=== PATIENT | female | born 1975 | race Asian ===

== ENCOUNTER 2021-07-20 13:14 | Inpatient (IN) | payer OTHER ==
[2021-07-20] MEDS ORDERED: MAGNESIUM CITRATE 300 ML BOTTLE PO PRN (13:31)
[2021-07-20] MEDS ORDERED: MAG HYDROX/AL HYDROX/SIMETH 30 ML UNIT-DOSE CUP PO PRN (13:31)
[2021-07-20] MEDS ORDERED: IBUPROFEN 400 MG TABLET (FP) PO PRN (13:31)
[2021-07-20] MEDS ORDERED: BISMUTH SUBSALICYLATE 524 MG/30 ML PO PRN (13:31)
[2021-07-20] MEDS ORDERED: ONDANSETRON *ODT* 4 MG TABLET SL PRN (13:31)
[2021-07-20] MEDS ORDERED: MAGNESIUM HYDROX 2400MG/30ML ORAL SUSPENSION 30 ML CUP PO PRN (13:31)
[2021-07-20] MEDS ORDERED: ACETAMINOPHEN 325 MG TABLET (FP) PO PRN ×2 (13:31)
[2021-07-20 13:46] VITALS: BMI 32.3
[2021-07-20] MEDS ORDERED: hydrOXYzine PAMOATE 25 MG CAPSULE (FP) PO SCH (14:00)
[2021-07-20] MEDS ORDERED: hydrOXYzine PAMOATE 25 MG CAPSULE (FP) PO PRN (14:44)
[2021-07-20] MEDS: PRENATAL VITAMINS W/ FOLIC ACID TABLET (FP) PO SCH (15:12)
[2021-07-20] MEDS: NICOTINE 10 MG CARTRIDGE (INHALER) IH PRN ×2 (15:12→21:16)
[2021-07-20] MEDS: NICOTINE 14 MG/24 HOURS TOPICAL PATCH TD SCH (15:12)
[2021-07-20] MEDS: diazePAM 5 MG TABLET PO PRN (15:12)
[2021-07-20] MEDS: INSULIN SLIDING SCALE (NOVOLOG) 1 VIAL SQ SCH ×2 (17:28→21:53)
[2021-07-20] MEDS: diazePAM 5 MG TABLET PO SCH ×2 (17:28→22:26)
[2021-07-20 17:39] LABS: HEMOGLOBIN 12.2 GM/dL (10.7-15.3); MEAN PLT VOLUME 7.4 fl (7.5-11.1); PLATELET COUNT 363 10^3/uL (134-434); RBC 3.71 M/mm3 (3.60-5.2); RDW 13.7 % (11.6-15.6); WHITE BLOOD COUNT 13.5 K/mm3 (4.0-10.0)
[2021-07-20 17:44] LABS: CALCIUM 9.9 mg/dL (8.5-10.1)
[2021-07-20 17:45] LABS: ALBUMIN 3.4 g/dl (3.4-5.0); BLOOD UREA NITROGEN 14.2 mg/dL (7-18)
[2021-07-20 17:48] LABS: CREATININE 0.9 mg/dL (0.55-1.3)
[2021-07-20 17:50] LABS: BILIRUBIN,TOTAL 0.7 mg/dL (0.2-1); TOT PROT 7.6 g/dl (6.4-8.2)
[2021-07-20] MEDS: MENTHOL/PHENOL 1 EACH UD MM PRN (18:08)
[2021-07-20] MEDS ORDERED: AZITHROMYCIN 500 MG TABLET PO ONE (19:16)
[2021-07-20] MEDS: MELATONIN 5 MG TABLETS PO SCH (22:25)
[2021-07-20] MEDS: QUEtiapine FUMARATE 50 MG TABLET PO SCH (22:25)
[2021-07-20] MEDS: THIAMINE HCL 100 MG TABLET (FP) PO SCH (22:25)
[2021-07-20] MEDS: guaiFENesin/D-M SUGAR-FREE/ACLHOL-FREE 118 ML BOTTLE PO PRN (23:34)
[2021-07-21] MEDS: diazePAM 5 MG TABLET PO SCH ×4 (05:48→22:41)
[2021-07-21] MEDS: guaiFENesin/D-M SUGAR-FREE/ACLHOL-FREE 118 ML BOTTLE PO PRN ×3 (05:49→22:40)
[2021-07-21] MEDS: INSULIN SLIDING SCALE (NOVOLOG) 1 VIAL SQ SCH ×4 (06:28→22:42)
[2021-07-21] MEDS: NICOTINE 10 MG CARTRIDGE (INHALER) IH PRN ×2 (09:19→18:13)
[2021-07-21] MEDS: NICOTINE 14 MG/24 HOURS TOPICAL PATCH TD SCH (10:03)
[2021-07-21] MEDS: PRENATAL VITAMINS W/ FOLIC ACID TABLET (FP) PO SCH (10:04)
[2021-07-21] MEDS: AZITHROMYCIN 250 MG TABLET PO SCH (10:04)
[2021-07-21] MEDS: NICOTINE POLACRILEX 2 MG GUM BUC PRN ×2 (13:48→18:03)
[2021-07-21] MEDS: MENTHOL/PHENOL 1 EACH UD MM PRN ×2 (13:48→18:15)
[2021-07-21] MEDS: THIAMINE HCL 100 MG TABLET (FP) PO SCH (22:41)
[2021-07-21] MEDS: MELATONIN 5 MG TABLETS PO SCH (22:41)
[2021-07-21] MEDS: QUEtiapine FUMARATE 50 MG TABLET PO SCH (22:41)
[2021-07-21] MEDS: METHOCARBAMOL 500 MG TABLET PO PRN (22:42)
[2021-07-22] MEDS: diazePAM 5 MG TABLET PO SCH ×3 (05:39→22:49)
[2021-07-22] MEDS: metFORMIN HCL 500 MG TABLET (FP) PO SCH (06:14)
[2021-07-22] MEDS: INSULIN SLIDING SCALE (NOVOLOG) 1 VIAL SQ SCH ×4 (06:15→22:46)
[2021-07-22] MEDS: NICOTINE POLACRILEX 2 MG GUM BUC PRN (10:24)
[2021-07-22] MEDS: diazePAM 5 MG TABLET PO PRN (10:26)
[2021-07-22] MEDS: PRENATAL VITAMINS W/ FOLIC ACID TABLET (FP) PO SCH (10:26)
[2021-07-22] MEDS: AZITHROMYCIN 250 MG TABLET PO SCH (10:26)
[2021-07-22] MEDS: guaiFENesin/D-M SUGAR-FREE/ACLHOL-FREE 118 ML BOTTLE PO PRN ×2 (10:27→22:53)
[2021-07-22] MEDS: NICOTINE 10 MG CARTRIDGE (INHALER) IH PRN (10:58)
[2021-07-22 12:39] LABS: BASO % 0.9 % (0-2.0); HEMATOCRIT 39.6 % (32.4-45.2); HEMOGLOBIN 13.6 GM/dL (10.7-15.3); MCH 33.5 pg (25.7-33.7); MCHC 34.2 g/dl (32.0-36.0); MEAN CELL VOLUME 97.9 fl (80-96); MEAN PLT VOLUME 8.2 fl (7.5-11.1); MONO % 4.3 % (3.8-10.2); NEUT % 68.8 % (42.8-82.8); PLATELET COUNT 444 10^3/uL (134-434); RBC 4.04 M/mm3 (3.60-5.2)
[2021-07-22 12:43] LABS: ALBUMIN 3.6 g/dl (3.4-5.0); BLOOD UREA NITROGEN 13.5 mg/dL (7-18); CALCIUM 10.3 mg/dL (8.5-10.1)
[2021-07-22 12:45] LABS: BILIRUBIN,TOTAL 0.5 mg/dL (0.2-1); CREATININE 0.7 mg/dL (0.55-1.3)
[2021-07-22] MEDS: QUEtiapine FUMARATE 50 MG TABLET PO SCH (22:48)
[2021-07-22] MEDS: MELATONIN 5 MG TABLETS PO SCH (22:48)
[2021-07-22] MEDS: THIAMINE HCL 100 MG TABLET (FP) PO SCH (22:48)
[2021-07-23] MEDS: metFORMIN HCL 500 MG TABLET (FP) PO SCH (06:05)
[2021-07-23] MEDS: diazePAM 5 MG TABLET PO SCH ×2 (06:05→17:40)
[2021-07-23] MEDS: guaiFENesin/D-M SUGAR-FREE/ACLHOL-FREE 118 ML BOTTLE PO PRN ×3 (06:11→22:33)
[2021-07-23] MEDS: NICOTINE POLACRILEX 2 MG GUM BUC PRN ×3 (06:12→22:33)
[2021-07-23] MEDS: INSULIN SLIDING SCALE (NOVOLOG) 1 VIAL SQ SCH ×4 (07:05→22:45)
[2021-07-23] MEDS: NICOTINE 10 MG CARTRIDGE (INHALER) IH PRN (09:34)
[2021-07-23] MEDS: PRENATAL VITAMINS W/ FOLIC ACID TABLET (FP) PO SCH (10:34)
[2021-07-23] MEDS: AZITHROMYCIN 250 MG TABLET PO SCH (10:34)
[2021-07-23] MEDS: diazePAM 5 MG TABLET PO PRN (10:37)
[2021-07-23] MEDS: MENTHOL/PHENOL 1 EACH UD MM PRN (20:17)
[2021-07-23] MEDS: METHOCARBAMOL 500 MG TABLET PO PRN (22:29)
[2021-07-23] MEDS: MELATONIN 5 MG TABLETS PO SCH (22:29)
[2021-07-23] MEDS: THIAMINE HCL 100 MG TABLET (FP) PO SCH (22:30)
[2021-07-23] MEDS: QUEtiapine FUMARATE 50 MG TABLET PO SCH (22:31)
[2021-07-24] MEDS ORDERED: diazePAM 5 MG TABLET PO ONE (06:00)
[2021-07-24] MEDS: metFORMIN HCL 500 MG TABLET (FP) PO SCH (06:08)
[2021-07-24] MEDS: INSULIN SLIDING SCALE (NOVOLOG) 1 VIAL SQ SCH ×3 (06:10→17:31)
[2021-07-24] MEDS: PRENATAL VITAMINS W/ FOLIC ACID TABLET (FP) PO SCH (09:51)
[2021-07-24] MEDS: AZITHROMYCIN 250 MG TABLET PO SCH (09:51)
[2021-07-24] MEDS: NICOTINE 10 MG CARTRIDGE (INHALER) IH PRN (09:51)
[2021-07-24] MEDS: NICOTINE POLACRILEX 2 MG GUM BUC PRN ×2 (09:53→18:05)
[2021-07-24 13:16] VITALS: BP 154/94; PULSE 98; TEMP 96.9
[2021-07-24] MEDS ORDERED: amLODIPine BESYLATE 5 MG TABLET (FP) PO ONE (17:58)
[2021-07-25] MEDS ORDERED: LISINOPRIL 20 MG TABLET PO SCH (10:00)
[2021-07-25] MEDS ORDERED: PATIENT'S OWN MEDICATION (NON-FORMULARY) (Amlodipine Besylate/Benazepril [Lotrel 10-20 Mg PO SCH (10:00)
[2021-07-25] MEDS ORDERED: PATIENT'S OWN MEDICATION (NON-FORMULARY) (Atenolol/Chlorthalidone [Atenolol-Chlorthalidone PO SCH (10:00)
[2021-07-25] MEDS ORDERED: amLODIPine BESYLATE 10 MG TABLET (FP) PO SCH (10:00)
[2021-07-26] MEDS ORDERED: ATENOLOL 50 MG TABLET (FP) PO SCH (10:00)
[2021-07-26] MEDS ORDERED: CHLORTHALIDONE 25 MG TABLET PO SCH (10:00)
== END 2021-07-24 18:43 | disposition other institution (70) | DRG 775 ==
LOC: YASAS 13:14 → Y3N 14:26
PROVIDERS: ADMIT Allergy & Immunology; ATTEND Allergy & Immunology
PROC: HZ2ZZZZ Detoxification Services for Substance Abuse Treatment (ICD-10-PCS; principal; 2021-07-20)
DX: F10.230 Alcohol dependence with withdrawal, uncomplicated (principal); F12.20 Cannabis dependence, uncomplicated; F17.210 Nicotine dependence, cigarettes, uncomplicated; F31.9 Bipolar disorder, unspecified; I10 Essential (primary) hypertension; E78.5 Hyperlipidemia, unspecified; E11.9 Type 2 diabetes mellitus without complications; Z79.84 Long term (current) use of oral hypoglycemic drugs; E66.9 Obesity, unspecified; Z68.32 Body mass index [BMI] 32.0-32.9, adult
CPT/HCPCS: 36415; 71045-TC-FY; 80053; 82962; 85025; 85027; 86780; 87070; 93005; 93010; C9803; U0003; U0005

== ENCOUNTER 2021-07-24 18:54 | Inpatient (IN) | payer OTHER ==
[2021-07-24] MEDS ORDERED: MAGNESIUM CITRATE 300 ML BOTTLE PO PRN (20:04)
[2021-07-24] MEDS ORDERED: MAG HYDROX/AL HYDROX/SIMETH 30 ML UNIT-DOSE CUP PO PRN (20:04)
[2021-07-24] MEDS ORDERED: P-EPHED 60MG/TRIPROLIDI 2.5MG TABLET PO PRN (20:04)
[2021-07-24] MEDS ORDERED: IBUPROFEN 400 MG TABLET (FP) PO PRN (20:04)
[2021-07-24] MEDS ORDERED: LOPERAMIDE HCL 2 MG CAPSULE PO PRN (20:04)
[2021-07-24] MEDS ORDERED: ACETAMINOPHEN 325 MG TABLET (FP) PO PRN (20:04)
[2021-07-24] MEDS ORDERED: MAGNESIUM HYDROX 2400MG/30ML ORAL SUSPENSION 30 ML CUP PO PRN (20:04)
[2021-07-24] MEDS ORDERED: QUEtiapine FUMARATE 50 MG TABLET PO SCH (22:00)
[2021-07-24] MEDS ORDERED: MELATONIN 5 MG TABLETS PO SCH (22:00)
[2021-07-24] MEDS: BACLOFEN 10 MG TABLET (FP) PO SCH (22:06)
[2021-07-24] MEDS: hydrOXYzine PAMOATE 25 MG CAPSULE (FP) PO SCH (22:07)
[2021-07-24] MEDS: NICOTINE 10 MG CARTRIDGE (INHALER) IH PRN (22:07)
[2021-07-24] MEDS: THIAMINE HCL 100 MG TABLET (FP) PO SCH (22:07)
[2021-07-24] MEDS: guaiFENesin 200 MG/10 ML 10 ML UNIT-DOSE CUPS PO PRN (22:09)
[2021-07-25] MEDS: guaiFENesin 200 MG/10 ML 10 ML UNIT-DOSE CUPS PO PRN ×2 (06:35→22:06)
[2021-07-25] MEDS: metFORMIN HCL 500 MG TABLET (FP) PO SCH (06:35)
[2021-07-25] MEDS: hydrOXYzine PAMOATE 25 MG CAPSULE (FP) PO SCH ×5 (06:36→22:04)
[2021-07-25] MEDS ORDERED: PATIENT'S OWN MEDICATION (NON-FORMULARY) (Atenolol/Chlorthalidone [Atenolol-Chlorthalidone PO SCH (10:00)
[2021-07-25] MEDS ORDERED: PATIENT'S OWN MEDICATION (NON-FORMULARY) (Amlodipine Besylate/Benazepril [Lotrel 10-20 Mg PO SCH (10:00)
[2021-07-25] MEDS: NICOTINE 14 MG/24 HOURS TOPICAL PATCH TD SCH (10:15)
[2021-07-25] MEDS: amLODIPine BESYLATE 10 MG TABLET (FP) PO SCH (10:15)
[2021-07-25] MEDS: CHLORTHALIDONE 25 MG TABLET PO SCH (10:15)
[2021-07-25] MEDS: ATENOLOL 50 MG TABLET (FP) PO SCH (10:16)
[2021-07-25] MEDS: LISINOPRIL 20 MG TABLET PO SCH (10:16)
[2021-07-25] MEDS: PRENATAL VITAMINS W/ FOLIC ACID TABLET (FP) PO SCH (10:16)
[2021-07-25] MEDS: MENTHOL/PHENOL 1 EACH UD MM PRN (10:18)
[2021-07-25] MEDS: NICOTINE 10 MG CARTRIDGE (INHALER) IH PRN (14:51)
[2021-07-25] MEDS: QUEtiapine FUMARATE 25 MG TABLET PO SCH (22:03)
[2021-07-25] MEDS: THIAMINE HCL 100 MG TABLET (FP) PO SCH (22:03)
[2021-07-25] MEDS: BACLOFEN 10 MG TABLET (FP) PO SCH (22:03)
[2021-07-26] MEDS: hydrOXYzine PAMOATE 25 MG CAPSULE (FP) PO SCH ×5 (07:09→21:32)
[2021-07-26] MEDS: metFORMIN HCL 500 MG TABLET (FP) PO SCH (07:09)
[2021-07-26] MEDS: guaiFENesin 200 MG/10 ML 10 ML UNIT-DOSE CUPS PO PRN ×3 (07:10→21:30)
[2021-07-26] MEDS: PRENATAL VITAMINS W/ FOLIC ACID TABLET (FP) PO SCH (10:25)
[2021-07-26] MEDS: NICOTINE 14 MG/24 HOURS TOPICAL PATCH TD SCH (10:25)
[2021-07-26] MEDS: NICOTINE 10 MG CARTRIDGE (INHALER) IH PRN ×2 (10:27→21:49)
[2021-07-26] MEDS: LISINOPRIL 20 MG TABLET PO SCH (12:17)
[2021-07-26] MEDS: ATENOLOL 50 MG TABLET (FP) PO SCH (12:17)
[2021-07-26] MEDS: CHLORTHALIDONE 25 MG TABLET PO SCH (12:18)
[2021-07-26] MEDS: amLODIPine BESYLATE 10 MG TABLET (FP) PO SCH (12:18)
[2021-07-26] MEDS: MENTHOL/PHENOL 1 EACH UD MM PRN (12:20)
[2021-07-26] MEDS ORDERED: COLLOIDAL OATMEAL 1 BAR EACH TP PRN (14:27)
[2021-07-26] MEDS: QUEtiapine FUMARATE 25 MG TABLET PO SCH (21:31)
[2021-07-26] MEDS: THIAMINE HCL 100 MG TABLET (FP) PO SCH (21:32)
[2021-07-26] MEDS: BACLOFEN 10 MG TABLET (FP) PO SCH (21:33)
[2021-07-26] MEDS: BENZOCAINE 20 % GEL TUBE MM PRN (23:03)
[2021-07-27] MEDS: metFORMIN HCL 500 MG TABLET (FP) PO SCH (06:42)
[2021-07-27] MEDS: hydrOXYzine PAMOATE 25 MG CAPSULE (FP) PO SCH ×5 (06:42→21:41)
[2021-07-27] MEDS: guaiFENesin 200 MG/10 ML 10 ML UNIT-DOSE CUPS PO PRN ×2 (06:44→21:40)
[2021-07-27] MEDS: PRENATAL VITAMINS W/ FOLIC ACID TABLET (FP) PO SCH (10:23)
[2021-07-27] MEDS: ATENOLOL 50 MG TABLET (FP) PO SCH (10:24)
[2021-07-27] MEDS: NICOTINE 14 MG/24 HOURS TOPICAL PATCH TD SCH (10:24)
[2021-07-27] MEDS: LISINOPRIL 20 MG TABLET PO SCH (10:26)
[2021-07-27] MEDS: amLODIPine BESYLATE 10 MG TABLET (FP) PO SCH (10:26)
[2021-07-27] MEDS: CHLORTHALIDONE 25 MG TABLET PO SCH (10:26)
[2021-07-27] MEDS ORDERED: PT OWN MED DRAWER 7, Y5N ONE (10:46)
[2021-07-27] MEDS: NICOTINE 10 MG CARTRIDGE (INHALER) IH PRN (16:50)
[2021-07-27] MEDS: THIAMINE HCL 100 MG TABLET (FP) PO SCH (21:41)
[2021-07-27] MEDS: QUEtiapine FUMARATE 25 MG TABLET PO SCH (21:41)
[2021-07-27] MEDS: BACLOFEN 10 MG TABLET (FP) PO SCH (21:41)
[2021-07-27] MEDS: BENZOCAINE 20 % GEL TUBE MM PRN (21:42)
[2021-07-28] MEDS: hydrOXYzine PAMOATE 25 MG CAPSULE (FP) PO SCH ×2 (06:49→10:09)
[2021-07-28] MEDS: metFORMIN HCL 500 MG TABLET (FP) PO SCH (06:55)
[2021-07-28] MEDS: LISINOPRIL 20 MG TABLET PO SCH (10:07)
[2021-07-28] MEDS: amLODIPine BESYLATE 10 MG TABLET (FP) PO SCH (10:07)
[2021-07-28] MEDS: ATENOLOL 50 MG TABLET (FP) PO SCH (10:07)
[2021-07-28] MEDS: CHLORTHALIDONE 25 MG TABLET PO SCH (10:07)
[2021-07-28] MEDS: PRENATAL VITAMINS W/ FOLIC ACID TABLET (FP) PO SCH (10:08)
[2021-07-28] MEDS: NICOTINE 14 MG/24 HOURS TOPICAL PATCH TD SCH (10:08)
[2021-07-28] MEDS ORDERED: hydrOXYzine PAMOATE 25 MG CAPSULE (FP) PO PRN (11:01)
[2021-07-28] MEDS: NICOTINE 10 MG CARTRIDGE (INHALER) IH PRN (17:57)
[2021-07-28] MEDS: guaiFENesin 200 MG/10 ML 10 ML UNIT-DOSE CUPS PO PRN (21:10)
[2021-07-28] MEDS: BACLOFEN 10 MG TABLET (FP) PO SCH (21:11)
[2021-07-28] MEDS: QUEtiapine FUMARATE 25 MG TABLET PO SCH (21:11)
[2021-07-28] MEDS: THIAMINE HCL 100 MG TABLET (FP) PO SCH (21:11)
[2021-07-29] MEDS: metFORMIN HCL 500 MG TABLET (FP) PO SCH (07:03)
[2021-07-29] MEDS: PRENATAL VITAMINS W/ FOLIC ACID TABLET (FP) PO SCH (10:32)
[2021-07-29] MEDS: NICOTINE 14 MG/24 HOURS TOPICAL PATCH TD SCH (10:32)
[2021-07-29] MEDS: NICOTINE 10 MG CARTRIDGE (INHALER) IH PRN (10:33)
[2021-07-29] MEDS: CHLORTHALIDONE 25 MG TABLET PO SCH (14:29)
[2021-07-29] MEDS: ATENOLOL 50 MG TABLET (FP) PO SCH (14:30)
[2021-07-29] MEDS: amLODIPine BESYLATE 10 MG TABLET (FP) PO SCH (14:30)
[2021-07-29] MEDS: LISINOPRIL 20 MG TABLET PO SCH (14:30)
[2021-07-29] MEDS: QUEtiapine FUMARATE 25 MG TABLET PO SCH (21:48)
[2021-07-29] MEDS: THIAMINE HCL 100 MG TABLET (FP) PO SCH (21:49)
[2021-07-29] MEDS: BACLOFEN 10 MG TABLET (FP) PO SCH (21:49)
[2021-07-30] MEDS: metFORMIN HCL 500 MG TABLET (FP) PO SCH (06:35)
[2021-07-30] MEDS: LISINOPRIL 20 MG TABLET PO SCH (10:20)
[2021-07-30] MEDS: PRENATAL VITAMINS W/ FOLIC ACID TABLET (FP) PO SCH (10:20)
[2021-07-30] MEDS: amLODIPine BESYLATE 10 MG TABLET (FP) PO SCH (10:20)
[2021-07-30] MEDS: ATENOLOL 50 MG TABLET (FP) PO SCH (10:21)
[2021-07-30] MEDS: NICOTINE 14 MG/24 HOURS TOPICAL PATCH TD SCH (10:21)
[2021-07-30] MEDS: CHLORTHALIDONE 25 MG TABLET PO SCH (10:21)
[2021-07-30] MEDS: BACLOFEN 10 MG TABLET (FP) PO SCH (21:48)
[2021-07-30] MEDS: THIAMINE HCL 100 MG TABLET (FP) PO SCH (21:48)
[2021-07-30] MEDS: QUEtiapine FUMARATE 25 MG TABLET PO SCH (21:49)
[2021-07-31] MEDS: metFORMIN HCL 500 MG TABLET (FP) PO SCH (06:46)
[2021-07-31] MEDS: PRENATAL VITAMINS W/ FOLIC ACID TABLET (FP) PO SCH (09:50)
[2021-07-31] MEDS: NICOTINE 14 MG/24 HOURS TOPICAL PATCH TD SCH (09:50)
[2021-07-31 13:40] LABS: INR 0.96 (0.83-1.09); PROTHROMBIN TIME (PATIENT) 11.2 SEC (9.7-13.0)
[2021-07-31 13:42] LABS: CALCIUM 9.8 mg/dL (8.5-10.1)
[2021-07-31 13:46] LABS: BILIRUBIN,TOTAL 0.6 mg/dL (0.2-1); CREATININE 0.9 mg/dL (0.55-1.3)
[2021-07-31 13:47] LABS: TOT PROT 7.6 g/dl (6.4-8.2)
[2021-07-31 13:51] LABS: ALBUMIN 3.4 g/dl (3.4-5.0)
[2021-07-31] MEDS: CHLORTHALIDONE 25 MG TABLET PO SCH (14:39)
[2021-07-31] MEDS: LISINOPRIL 20 MG TABLET PO SCH (14:40)
[2021-07-31] MEDS: amLODIPine BESYLATE 10 MG TABLET (FP) PO SCH (14:40)
[2021-07-31] MEDS: ATENOLOL 50 MG TABLET (FP) PO SCH (14:41)
[2021-07-31] MEDS: THIAMINE HCL 100 MG TABLET (FP) PO SCH (21:53)
[2021-07-31] MEDS: QUEtiapine FUMARATE 25 MG TABLET PO SCH (21:54)
[2021-07-31] MEDS: BACLOFEN 10 MG TABLET (FP) PO SCH (21:54)
[2021-07-31] MEDS: NICOTINE 10 MG CARTRIDGE (INHALER) IH PRN (22:30)
[2021-08-01] MEDS: metFORMIN HCL 500 MG TABLET (FP) PO SCH (07:03)
[2021-08-01] MEDS: NICOTINE 14 MG/24 HOURS TOPICAL PATCH TD SCH (09:55)
[2021-08-01] MEDS: PRENATAL VITAMINS W/ FOLIC ACID TABLET (FP) PO SCH (09:55)
[2021-08-01] MEDS: amLODIPine BESYLATE 10 MG TABLET (FP) PO SCH (09:56)
[2021-08-01] MEDS: LISINOPRIL 20 MG TABLET PO SCH (09:56)
[2021-08-01] MEDS: CHLORTHALIDONE 25 MG TABLET PO SCH (09:56)
[2021-08-01] MEDS: ATENOLOL 50 MG TABLET (FP) PO SCH (09:56)
[2021-08-01] MEDS: BACLOFEN 10 MG TABLET (FP) PO SCH (21:45)
[2021-08-01] MEDS: THIAMINE HCL 100 MG TABLET (FP) PO SCH (21:45)
[2021-08-01] MEDS: QUEtiapine FUMARATE 25 MG TABLET PO SCH (21:45)
[2021-08-02] MEDS: metFORMIN HCL 500 MG TABLET (FP) PO SCH (06:33)
[2021-08-02 07:44] VITALS: TEMP 97.3
[2021-08-02] MEDS: PRENATAL VITAMINS W/ FOLIC ACID TABLET (FP) PO SCH (10:49)
[2021-08-02] MEDS: CHLORTHALIDONE 25 MG TABLET PO SCH (10:49)
[2021-08-02] MEDS: amLODIPine BESYLATE 10 MG TABLET (FP) PO SCH (10:50)
[2021-08-02] MEDS: NICOTINE 14 MG/24 HOURS TOPICAL PATCH TD SCH (10:50)
[2021-08-02] MEDS: ATENOLOL 50 MG TABLET (FP) PO SCH (10:50)
[2021-08-02] MEDS: LISINOPRIL 20 MG TABLET PO SCH (10:50)
[2021-08-02 16:01] VITALS: BP 125/72; PULSE 81
== END 2021-08-02 16:35 | disposition home or self-care (01) | DRG 772 ==
LOC: YASAS 18:54 → Y5N 18:55
PROVIDERS: ADMIT Allergy & Immunology; ATTEND Allergy & Immunology
PROC: HZ42ZZZ Group Counseling for Substance Abuse Treatment, Cognitive-Behavioral (ICD-10-PCS; principal; 2021-07-24)
DX: F10.20 Alcohol dependence, uncomplicated (principal); F10.24 Alcohol dependence with alcohol-induced mood disorder; F12.20 Cannabis dependence, uncomplicated; F17.210 Nicotine dependence, cigarettes, uncomplicated; F31.9 Bipolar disorder, unspecified; E78.5 Hyperlipidemia, unspecified; E11.9 Type 2 diabetes mellitus without complications; Z79.84 Long term (current) use of oral hypoglycemic drugs; I10 Essential (primary) hypertension; R74.8 Abnormal levels of other serum enzymes; E66.9 Obesity, unspecified; Z68.31 Body mass index [BMI] 31.0-31.9, adult
CPT/HCPCS: 36415; 80053; 82962; 85610; J0475

== ENCOUNTER 2022-11-17 18:50 | Inpatient (IN) | payer OTHER ==
[2022-11-17 21:26] VITALS: BMI 32.9
[2022-11-17] MEDS ORDERED: NICOTINE POLACRILEX 2 MG GUM BUC PRN (23:02)
[2022-11-17] MEDS ORDERED: ONDANSETRON *ODT* 4 MG TABLET SL PRN (23:02)
[2022-11-17] MEDS ORDERED: IBUPROFEN 400 MG TABLET (FP) PO PRN (23:02)
[2022-11-17] MEDS ORDERED: LOPERAMIDE HCL 2 MG CAPSULE PO PRN (23:02)
[2022-11-17] MEDS ORDERED: METHOCARBAMOL 500 MG TABLET PO PRN (23:02)
[2022-11-17] MEDS ORDERED: POLYETHYLENE GLYCOL (HEALTHYLAX) 3350 17 GM PACKET PO PRN (23:02)
[2022-11-17] MEDS ORDERED: NALOXONE HCL (KLOXXADO) 8 MG SPRAY NS PRN (23:02)
[2022-11-17] MEDS ORDERED: ACETAMINOPHEN 325 MG TABLET (FP) PO PRN ×2 (23:02)
[2022-11-17] MEDS ORDERED: IBUPROFEN 600 MG TABLET (FP) PO PRN (23:02)
[2022-11-17] MEDS ORDERED: DICYCLOMINE HCL 10 MG CAPSULE PO PRN (23:02)
[2022-11-17] MEDS ORDERED: MAG HYDROX/AL HYDROX/SIMETH 30 ML UNIT-DOSE CUP PO PRN (23:02)
[2022-11-17] MEDS ORDERED: BISMUTH SUBSALICYLATE 524 MG/30 ML PO PRN (23:02)
[2022-11-17] MEDS ORDERED: BENZOCAINE/MENTHOL (CHLORASEPTIC ) LOZENGE MM PRN (23:02)
[2022-11-17] MEDS ORDERED: MAGNESIUM HYDROX 2400MG/30ML ORAL SUSPENSION 30 ML CUP PO PRN (23:02)
[2022-11-17] MEDS ORDERED: chlordiazePOXIDE HCL 25 MG CAPSULE PO PRN (23:07)
[2022-11-18] MEDS: chlordiazePOXIDE HCL 25 MG CAPSULE PO SCH ×9 (00:30→22:23)
[2022-11-18] MEDS ORDERED: chlordiazePOXIDE HCL 25 MG CAPSULE ONE (01:31)
[2022-11-18] MEDS ORDERED: LOPERAMIDE HCL 2 MG CAPSULE ONE (01:55)
[2022-11-18] MEDS: INSULIN SLIDING SCALE (NOVOLOG) 1 VIAL SQ SCH ×2 (08:02→16:50)
[2022-11-18 09:28] LABS: BLOOD UREA NITROGEN 15.1 mg/dL (7-18); CALCIUM 9.3 mg/dL (8.5-10.1)
[2022-11-18 09:32] LABS: BILIRUBIN,TOTAL 0.7 mg/dL (0.2-1); TOT PROT 7.3 g/dl (6.4-8.2)
[2022-11-18 09:43] LABS: HEMATOCRIT 32.9 % (32.4-45.2); HEMOGLOBIN 10.7 GM/dL (10.7-15.3); MCH 30.6 pg (25.7-33.7); MCHC 32.4 g/dl (32.0-36.0); MEAN CELL VOLUME 94.3 fl (80-96); MEAN PLT VOLUME 7.3 fl (7.5-11.1); PLATELET COUNT 771 10^3/uL (134-434); RBC 3.49 M/mm3 (3.60-5.2); RDW 14.7 % (11.6-15.6); WHITE BLOOD COUNT 18.3 K/mm3 (4.0-10.0)
[2022-11-18] MEDS: PRENATAL VITAMINS W/ FOLIC ACID TABLET (FP) PO SCH (11:21)
[2022-11-18] MEDS: NICOTINE 21 MG/24 HOURS TOPICAL PATCH TD SCH (11:21)
[2022-11-18] MEDS: QUEtiapine FUMARATE 25 MG TABLET PO SCH (22:23)
[2022-11-18] MEDS: THIAMINE HCL 100 MG TABLET (FP) PO SCH (22:23)
[2022-11-18] MEDS: MELATONIN 5 MG TABLETS PO SCH (22:23)
[2022-11-19] MEDS: chlordiazePOXIDE HCL 25 MG CAPSULE PO SCH ×5 (06:24→23:42)
[2022-11-19] MEDS: metFORMIN HCL 500 MG TABLET (FP) PO SCH ×2 (06:25→17:10)
[2022-11-19] MEDS: INSULIN SLIDING SCALE (NOVOLOG) 1 VIAL SQ SCH ×2 (08:10→17:06)
[2022-11-19] MEDS: PRENATAL VITAMINS W/ FOLIC ACID TABLET (FP) PO SCH (09:55)
[2022-11-19] MEDS: NICOTINE 21 MG/24 HOURS TOPICAL PATCH TD SCH (09:55)
[2022-11-19] MEDS ORDERED: AZITHROMYCIN 250 MG TABLET PO SCH (13:45)
[2022-11-19] MEDS: guaiFENesin 600 MG TABLET.ER (FP) PO SCH ×2 (14:02→23:40)
[2022-11-19] MEDS: SODIUM POLYSTYRENE SULFONATE 15 GM/60 ML BOTTLE PO ONE ×2 (17:56→18:09)
[2022-11-19 19:23] LABS: CALCIUM 9.9 mg/dL (8.5-10.1)
[2022-11-19 19:24] LABS: ALBUMIN 2.9 g/dl (3.4-5.0); BLOOD UREA NITROGEN 12.1 mg/dL (7-18)
[2022-11-19 19:25] LABS: HEMATOCRIT 35.1 % (32.4-45.2); HEMOGLOBIN 11.4 GM/dL (10.7-15.3); MCH 30.4 pg (25.7-33.7); MCHC 32.4 g/dl (32.0-36.0); MEAN CELL VOLUME 93.6 fl (80-96); MEAN PLT VOLUME 7.3 fl (7.5-11.1); PLATELET COUNT 717 10^3/uL (134-434); RBC 3.75 M/mm3 (3.60-5.2); RDW 14.5 % (11.6-15.6); WHITE BLOOD COUNT 17.4 K/mm3 (4.0-10.0)
[2022-11-19 19:27] LABS: CREATININE 0.7 mg/dL (0.55-1.3)
[2022-11-19 19:28] LABS: BILIRUBIN,TOTAL 0.7 mg/dL (0.2-1)
[2022-11-19 19:29] LABS: TOT PROT 7.2 g/dl (6.4-8.2)
[2022-11-19 19:30] LABS: EPI CELLS 1 /uL (0-25.1); HYALINE CASTS 0 /uL (0-3.1); PH,URINE 7.5 (5.0-8.0); URINE APPEARANCE CLEAR; URINE BACTERIA >9,000 /uL (0-1359); URINE BILIRUBIN NEGATIVE (NEGATIVE); URINE COLOR YELLOW; URINE GLUCOSE (UA) 1+ (NEGATIVE); URINE KETONE NEGATIVE (NEGATIVE); URINE LEUK ESTERASE 3+ (NEGATIVE); URINE NITRITE NEGATIVE (NEGATIVE); URINE PROTEIN NEGATIVE (NEGATIVE); URINE RBC 20 /uL (0-23.9); URINE UROBILINOGEN 0.2 mg/dL (0.2-1.0); URINE WBC 358 /uL (0-25.8)
[2022-11-19] MEDS: QUEtiapine FUMARATE 25 MG TABLET PO SCH (23:40)
[2022-11-19] MEDS: MELATONIN 5 MG TABLETS PO SCH (23:40)
[2022-11-19] MEDS: THIAMINE HCL 100 MG TABLET (FP) PO SCH (23:41)
[2022-11-20] MEDS ORDERED: chlordiazePOXIDE HCL 10 MG CAPSULE PO PRN
[2022-11-20] MEDS ORDERED: chlordiazePOXIDE HCL 10 MG CAPSULE PO SCH (05:00)
[2022-11-20] MEDS: INSULIN SLIDING SCALE (NOVOLOG) 1 VIAL SQ SCH ×2 (06:17→06:35)
[2022-11-20 09:17] VITALS: BP 127/77; PULSE 101; RESP 18; TEMP 98.3
[2022-11-20] MEDS ORDERED: CEPHALEXIN MONOHYDRATE 500 MG CAPSULE (UD) PO SCH (10:00)
[2022-11-20] MEDS ORDERED: ASPIRIN COATED 81 MG TABLET.EC PO SCH (10:00)
[2022-11-21] MEDS ORDERED: chlordiazePOXIDE HCL 10 MG CAPSULE PO SCH (05:00)
[2022-11-22] MEDS ORDERED: chlordiazePOXIDE HCL 10 MG CAPSULE PO ONE (05:00)
== END 2022-11-20 09:30 | disposition home or self-care (01) | DRG 775 ==
LOC: YASAS 18:50 → Y3N 11-18 04:25
PROVIDERS: ADMIT Allergy & Immunology; ATTEND Surgery
PROC: HZ2ZZZZ Detoxification Services for Substance Abuse Treatment (ICD-10-PCS; principal; 2022-11-18)
DX: F10.230 Alcohol dependence with withdrawal, uncomplicated (principal); F12.20 Cannabis dependence, uncomplicated; F10.24 Alcohol dependence with alcohol-induced mood disorder; F31.9 Bipolar disorder, unspecified; F41.9 Anxiety disorder, unspecified; U07.1 COVID-19; E78.5 Hyperlipidemia, unspecified; I10 Essential (primary) hypertension; E11.9 Type 2 diabetes mellitus without complications; Z79.4 Long term (current) use of insulin; J03.90 Acute tonsillitis, unspecified; N39.0 Urinary tract infection, site not specified; R09.02 Hypoxemia; R79.89 Other specified abnormal findings of blood chemistry; Z28.310 Unvaccinated for COVID-19; Z28.9 Immunization not carried out for unspecified reason
CPT/HCPCS: 36415; 70450-TC; 70491-TC; 71260-TC; 80053; 81003; 81025; 82962; 85025; 85027; 86780; 87651; 87811; 96372; 99285-25; C9803-CS; J1100; U0003; U0005

== ENCOUNTER 2022-11-19 19:26 | Emergency (ER) | payer OTHER ==
[2022-11-19 20:32] VITALS: BMI 32.9
[2022-11-19] MEDS ORDERED: DEXAMETHASONE SOD PHOSPHATE 10 MG/1 ML VIAL IM ONE (21:04)
[2022-11-19] MEDS ORDERED: DEXAMETHASONE SOD PHOSPHATE 10 MG/1 ML VIAL ONE (21:25)
[2022-11-20] MEDS ORDERED: CEPHALEXIN MONOHYDRATE 500 MG CAPSULE (UD) PO ONE (00:08)
[2022-11-20] MEDS ORDERED: PENICILLIN G BENZATHINE 1,200,000 UNIT/2 ML PFS IM ONE ×2 (00:08→00:20)
[2022-11-20] MEDS ORDERED: CEPHALEXIN MONOHYDRATE 500 MG CAPSULE (UD) ONE (00:19)
[2022-11-20 01:23] VITALS: BP 132/90; PULSE 92; RESP 20; TEMP 97.1
== END 2022-11-20 02:47 | disposition home or self-care (01) ==
LOC: JER 19:26
PROC: 3E023GC Introduction of Other Therapeutic Substance into Muscle, Percutaneous Approach (ICD-10-PCS; principal; 2022-11-19)
PROC: 3E02329 Introduction of Other Anti-infective into Muscle, Percutaneous Approach (ICD-10-PCS; 2022-11-19)
DX: U07.1 COVID-19 (principal); J02.0 Streptococcal pharyngitis; N39.0 Urinary tract infection, site not specified
CPT/HCPCS: 70450-TC; 70491-TC; 71260-TC; 82962; 87651; 96372; 99285-25; J1100